=== PATIENT | male | born 1990 | race Two or more races ===

== ENCOUNTER 2025-04-23 23:27 | Emergency (ER) | payer OTHER ==
[~2025-04-23] VITALS: Ht 177.8 cm; Wt 95.3 kg
[2025-04-23 23:59] LABS: BASOPHILS % (AUTO) 0.7 % (0.0-2.0); EOSINOPHILS % (AUTO) 0.1 % (0.0-7.0); HEMATOCRIT 41.9 % (36.7-47.1); HEMOGLOBIN 14.5 g/dL (12.5-16.3); LYMPHOCYTES # (AUTO) 2.7 K/uL (0.8-4.8); LYMPHOCYTES % (AUTO) 41.3 % (20.5-51.5); MEAN CORPUSCULAR HEMOGLOBIN 32.8 uug (23.8-33.4); MEAN CORPUSCULAR HGB CONC 35 g/dL (32.5-36.3); MEAN CORPUSCULAR VOLUME 94.9 fL (73.0-96.2); MONOCYTES # (AUTO) 0.8 K/uL (0.1-1.30); MONOCYTES % (AUTO) 11.6 % (0.0-11.0); NEUTROPHILS # (AUTO) 3.1 K/uL (1.8-8.9); NEUTROPHILS % (AUTO) 46.3 % (38.5-71.5); PLATELET COUNT (AUTO) 165 K/uL (152-348); RED BLOOD CELL COUNT(AUTO) 4.42 MIL/uL (4.06-5.63); RED CELL DISTRIBUTION WIDTH 16.4 % (12.1-16.2); WHITE BLOOD COUNT (AUTO) 6.6 K/uL (3.6-10.2)
[2025-04-24] LABS: DIFFERENTIAL COMMENT 1
[2025-04-24 00:01] LABS: CALCIUM 8.1 mg/dL (8.5-10.1); CARBON DIOXIDE 28 mmol/L (21-32); CHLORIDE 107 mmol/L (98-107); CREATININE 0.6 mg/dL (0.6-1.3); GLUCOSE 219 mg/dL (74-106); POTASSIUM 3.2 mmol/L (3.5-5.1); SODIUM SERUM 147 mmol/L (136-145); UREA NITROGEN, BLOOD 6 mg/dL (7-18)
[2025-04-24 00:06] LABS: ALANINE AMINOTRANSFERASE 58 U/L (16-63); ALBUMIN 3.3 g/dL (3.4-5.0); ALKALINE PHOSPHATASE 264 U/L (50-136); ASPARTATE AMINOTRANSFERASE 63 U/L (15-37); BILIRUBIN,DIRECT 0.2 mg/dL (0.0-0.2); BILIRUBIN,TOTAL 0.4 mg/dL (0.2-1.0); TOTAL PROTEIN, SERUM 6.6 g/dL (6.4-8.2)
[2025-04-24] MEDS ORDERED: POTASSIUM CHLORIDE 20 MEQ TAB.PRT.SR ONE (01:43)
[2025-04-24] MEDS: POTASSIUM CHLORIDE 20 MEQ TAB.PRT.SR PO ONE (01:47)
[2025-04-24 10:02] VITALS: BP 120/97; O2SAT 98
== END 2025-04-24 10:03 | disposition home or self-care (01) ==
LOC: ER 23:37
DX: F10.129 Alcohol abuse with intoxication, unspecified (principal); M79.652 Pain in left thigh; E87.6 Hypokalemia; R51.9 Headache, unspecified; Z59.00 Homelessness unspecified; Y90.8 Blood alcohol level of 240 mg/100 ml or more
CPT/HCPCS: 36415; 70450; 72125; 83735; 85025; 85730; A4606; A4663; G0480

== ENCOUNTER 2025-07-07 20:21 | Emergency (ER) | payer OTHER ==
[~2025-07-07] VITALS: Ht 175.3 cm; Wt 102.1 kg
[2025-07-07 20:21] VITALS: BP 144/85
[2025-07-07] MEDS ORDERED: QUET50TA PO (20:38)
[2025-07-07] MEDS ORDERED: HYDR50TA62 PO (20:40)
[2025-07-07] MEDS ORDERED: MIRT-121 PO (20:40)
[2025-07-07] MEDS ORDERED: QUET200T PO (20:40)
[2025-07-07] MEDS ORDERED: NALT50TA PO (20:41)
[2025-07-07 22:42] LABS: PLATELET COUNT (AUTO) 275 K/uL (152-348); RED BLOOD CELL COUNT(AUTO) 4.56 MIL/uL (4.06-5.63); RED CELL DISTRIBUTION WIDTH 13.3 % (12.1-16.2); WHITE BLOOD COUNT (AUTO) 7.5 K/uL (3.6-10.2)
[2025-07-07 22:52] LABS: CREATININE 0.9 mg/dL (0.6-1.3); SODIUM SERUM 138.0 mmol/L (136-145); UREA NITROGEN, BLOOD 8.0 mg/dL (7-18)
[2025-07-07 22:57] LABS: ASPARTATE AMINOTRANSFERASE 55.0 U/L (15-37); TOTAL PROTEIN, SERUM 7.9 g/dL (6.4-8.2)
[2025-07-07 23:00] LABS: ETHANOL 89.0 MG/DL (0-10)
[2025-07-08] MEDS: IV NS 1000 ML 1,000 ML IV ONE (00:31)
[2025-07-08] MEDS ORDERED: POTASSIUM CHLORIDE 20 MEQ TAB.PRT.SR ONE (00:32)
[2025-07-08] MEDS: POTASSIUM CHLORIDE 20 MEQ TAB.PRT.SR PO ONE (00:33)
[2025-07-08 01:26] VITALS: BP 138/75; O2SAT 98
== END 2025-07-08 01:27 | disposition home or self-care (01) ==
LOC: ER 20:25
DX: F10.129 Alcohol abuse with intoxication, unspecified (principal); R79.89 Other specified abnormal findings of blood chemistry; F17.210 Nicotine dependence, cigarettes, uncomplicated; F19.10 Other psychoactive substance abuse, uncomplicated; Z59.00 Homelessness unspecified; Z86.59 Personal history of other mental and behavioral disorders; Y90.4 Blood alcohol level of 80-99 mg/100 ml
CPT/HCPCS: 80053; 83690; 85025; 36415; 74176; 99284; 80320; 96360; J7040; A4606; A4663; G0480

== ENCOUNTER 2025-07-27 12:54 | Emergency (ER) | payer OTHER ==
[~2025-07-27] VITALS: Ht 175.3 cm; Wt 99.8 kg
[~2025-07-27 12:54] MED LIST: HYDR50TA62 PO; MIRT-121 PO; NALT50TA PO; QUET200T PO; QUET50TA PO
[2025-07-27] MEDS: IV NORMAL SALINE 1000 ML BAG IV ONE (13:19)
[2025-07-27 13:28] LABS: ASPARTATE AMINOTRANSFERASE 123.0 U/L (15-37); CREATININE 1.0 mg/dL (0.6-1.3); SODIUM SERUM 143.0 mmol/L (136-145); TOTAL PROTEIN, SERUM 7.6 g/dL (6.4-8.2); UREA NITROGEN, BLOOD 5.0 mg/dL (7-18)
[2025-07-27] MEDS ORDERED: MAG HYDROX/AL HYDROX/SIMETH 30 ML LIQUID UDC ONE (13:44)
[2025-07-27] MEDS ORDERED: LIDOCAINE VISCUS 2% 15 ML UDC ONE (13:44)
[2025-07-27] MEDS ORDERED: ONDANSETRON 4 MG/2 ML VIAL ONE (13:44)
[2025-07-27] MEDS ORDERED: FAMOTIDINE. 20 MG/2 ML VIAL IV ONE (13:44)
[2025-07-27] MEDS: ONDANSETRON 4 MG/2 ML VIAL IV ONE (13:50)
[2025-07-27] MEDS: LIDOCAINE VISCUS 2% 15 ML UDC MM ONE (13:50)
[2025-07-27] MEDS: MAG HYDROX/AL HYDROX/SIMETH 30 ML LIQUID UDC PO ONE (13:50)
[2025-07-27] MEDS: FAMOTIDINE. 20 MG/2 ML VIAL IV ONE (13:50)
[2025-07-27 14:17] LABS: ETHANOL 194.0 MG/DL (0-10)
[2025-07-27] MEDS ORDERED: PANT20TA2 PO (14:22)
[2025-07-27] MEDS ORDERED: ONDA4TAB5 PO (14:22)
[2025-07-27 14:24] LABS: PLATELET COUNT (AUTO) 193 K/uL (152-348); RED BLOOD CELL COUNT(AUTO) 3.79 MIL/uL (4.06-5.63); RED CELL DISTRIBUTION WIDTH 14.4 % (12.1-16.2); WHITE BLOOD COUNT (AUTO) 7.2 K/uL (3.6-10.2)
[2025-07-27] MEDS ORDERED: CHLO25CA22 PO (15:02)
[2025-07-27 15:12] VITALS: BP 129/87
[2025-07-27 15:45] VITALS: BP 127/83; O2SAT 99
== END 2025-07-27 15:46 | disposition home or self-care (01) ==
LOC: ER 12:54
DX: K29.20 Alcoholic gastritis without bleeding (principal); R79.89 Other specified abnormal findings of blood chemistry; K70.9 Alcoholic liver disease, unspecified; F10.20 Alcohol dependence, uncomplicated; F17.210 Nicotine dependence, cigarettes, uncomplicated; F19.10 Other psychoactive substance abuse, uncomplicated; F31.9 Bipolar disorder, unspecified; Z59.00 Homelessness unspecified; Z79.899 Other long term (current) drug therapy; Y90.9 Presence of alcohol in blood, level not specified
CPT/HCPCS: 80076; 80048; 83690; 85025; 76705; 99285; 96361; 96374; 96375; 80320; J1308; J2405; J7040; 36415; A4606; A4663; G0480

== ENCOUNTER 2025-07-27 19:46 | Emergency (ER) | payer OTHER ==
[~2025-07-27] VITALS: Ht 152.4 cm; Wt 63.5 kg
[~2025-07-27 19:46] MED LIST changes: +CHLO25CA22 PO; +ONDA4TAB5 PO; +PANT20TA2 PO
[2025-07-27 20:19] VITALS: BP 129/89; O2SAT 97
== END 2025-07-27 20:42 | disposition home or self-care (01) ==
LOC: ER 19:48
DX: F10.129 Alcohol abuse with intoxication, unspecified (principal); F17.210 Nicotine dependence, cigarettes, uncomplicated; F31.9 Bipolar disorder, unspecified; Z59.00 Homelessness unspecified; Z79.899 Other long term (current) drug therapy; Y90.9 Presence of alcohol in blood, level not specified
CPT/HCPCS: A4606; A4663